=== PATIENT | male | born 1980 | race Caucasian/White ===

== ENCOUNTER 2018-06-08 06:55 | Observation (INO) ==
[~2018-06-08 06:55] MED LIST: LIDOCAINE W/ SODIUM BICARB 0.5 ML SYR ONE; LIDOCAINE W/ SODIUM BICARB 0.5 ML SYR SUBD ONE; Lactated Ringers 1,000 ML PRIMARY IV ONE; Nasal Sanitizer POPSWAB ampule 3 AMP (Nozin) PREOP DOSE ENOS SCH; SODIUM CHLORIDE 0.9% IV ONE; VANCOMYCIN IV ONE; ceFAZolin Inj 2gm (Premix) 2 GM/50 ML BAG IV ONE
[2018-06-08] MEDS ORDERED: fentaNYL Inj 250 MCG/5 ML VIAL ONE (07:21)
[2018-06-08] MEDS ORDERED: REMIFENTANIL HCL 5 MG VIAL IV ONE (07:21)
[2018-06-08] MEDS ORDERED: MIDAZOLAM 5 MG/1 ML ONE (07:21)
[2018-06-08] MEDS ORDERED: KETAMINE 100 MG/1 ML - 5 ML ONE (07:21)
--- NOTE | 2018-06-08 07:22 | DI ---
PA /LATERAL CHEST, 06/08/2018 7:40 AM : Clinical History: Cervical disc displacement. Spondylosis with radiculopathy. Preoperative evaluation . Previous Exam: None at this facility. There is no acute soft tissue or bony abnormality. Heart size is normal. Lungs are clear. Mediastinal structures are normal. There are no pulmonary nodules. Reading: Normal chest x-ray.
[2018-06-08] MEDS ORDERED: LIDOCAINE MPF 2% - 5 ML (20 MG/1 ML) ONE ×2 (07:34→11:39)
[2018-06-08] MEDS ORDERED: PROPOFOL 10 MG/1 ML (200 MG/20 ML) VIAL IV ONE ×2 (07:34→09:42)
[2018-06-08] MEDS ORDERED: Sodium Chloride 0.9% vial 10 ML ONE (07:36)
[2018-06-08] MEDS ORDERED: BACITRACIN 50,000 UNIT VIAL IRRIG ONE (07:36)
[2018-06-08] MEDS ORDERED: Vancomycin Inj 1gm vial ONE (07:36)
[2018-06-08 07:45] LABS: BASOPHILS # (AUTO) 0.03 10*3/UL; BASOPHILS % (AUTO) 0.5 % (0-1); BILIRUBIN,URINE NEGATIVE (NEG); CLARITY,URINE Slightly Cloudy (CLEAR); COLOR,URINE YELLOW (Y); EOSINOPHILS % (AUTO) 3.1 % (0-8); GLUCOSE, URINE (UA) NEGATIVE (NEG); Hematocrit [HCT] 44.9 % (42.0-52.0); Hemoglobin [HGB] 16.3 g/dL (14.0-18.0); LYMPHOCYTES # (AUTO) 2.53 10*3/uL; MEAN CORPUSCULAR HEMOGLOBIN 29.1 PG (27-31); MEAN CORPUSCULAR HGB CONC 36.3 g/dL (33-37); MONOCYTES # (AUTO) 0.47 10*3/UL (0.3-0.8); MONOCYTES % (AUTO) 7.3 % (5-15); NEUTROPHILS # (AUTO) 3.16 10*3/UL; NEUTROPHILS % (AUTO) 49.4 % (50-80); OCCULT BLOOD,URINE NEGATIVE (NEG); PH,URINE 5.5 (5.0-8.5); PROTEIN,URINE NEGATIVE (NEG); RED BLOOD COUNT 5.61 10^6/uL (4.70-6.10); URINE SAMPLE TYPE CLEAN CATCH URINE; UROBILINOGEN,URINE 0.2 EU/dL (0.2)
[2018-06-08 07:46] LABS: URINE SPECIFIC GRAVITY - MAN 1.025
[2018-06-08 07:47] LABS: PLATELET MORPHOLOGY COMMENT NORMAL MORPHOLOGY (NORM); RBC MORPHOLOGY COMMENT NORMAL MORPHOLOGY (NORM); WBC MORPHOLOGY COMMENT NORMAL MORPHOLOGY (NORM)
--- NOTE | 2018-06-08 07:52 | EKG ---
[address] [address] Measurements Intervals [place]e Rate: 72 P: 50 AR: 154 QRS: 7 QRSD: 90 T: 56 QT: 363 QTc: 387 Interpretive Statements SINUS RHYTHM NONSPECIFIC T-WAVE ABNORMALITY No previous ECG available for comparison Electronically Signed On 06-08-18 09:37:18 MDT by Venkat Jefferson MD [email or web address]
[2018-06-08] MEDS ORDERED: THROMBIN (BOVINE) 20,000 UNIT KIT TOPICAL ONE (07:57)
[2018-06-08] MEDS ORDERED: LIDOCAINE W/ SODIUM BICARB 0.5 ML SYR ONE (08:22)
[2018-06-08] MEDS ORDERED: Lactated Ringers 1,000 ML PRIMARY IV ONE (08:22)
[2018-06-08 08:53] LABS: BLOOD UREA NITROGEN 9 mg/dL (7-22); BUN/CREATININE RATIO 11.25 (6-20)
[2018-06-08] MEDS ORDERED: REMIFENTANIL 1 MG/1 ML IV ONE (10:33)
--- NOTE | 2018-06-08 11:39 | OPNOTE.NEU ---
Operative Note Operative Note: Neurosurgical Services Operative Note [facility] [place] Date of Surgery: 06-08-2018 Preoperative Diagnosis: Cervical disc herniation with radiculopathy Post-Op Diagnosis Codes: Same Procedure(s): C5-6, C6-7 Anterior cervical decompression and fusion 1. Anterior Cervical Decompression; 97206, 62980 2. Anterior Cervical Arthrodesis; 26459, 51929 3. Anterior Cervical Plating; 18814 4. Allograft Structural Graft; 90993 X2 5. Preparation of bone graft: A. Local autograft, same incision; B. [place] of morselized iliac crest autograft, separate incision; C. [place] of bone marrow aspirate, iliac crest; D. Addition of osteopromotive calcium compound; allograft DBM; 6. Intraoperative microsurgical technique 7. Intraoperative fluoroscopic navigation, [id number] 8. Intraoperative continuous neural monitoring, motor and sensory Surgeon(s): Timi Falk MD [place] Machine Operator(s): JITENDRA Suarez Anesthesia: General Anesthesiologist / MECHANICAL ENGINEERING TECHNICIAN: See database Brief Findings: Large central disc herniations at both levels. Procedure(s): We discussed the procedure, risks, advantages and disadvantages of surgical intervention at length. To prevent further pain, disability and potential progression of neurologic deficits, the patient would like to proceed with surgery. Introduction: After obtaining informed consent, careful consideration of the pre -operative studies and evaluation, the patient asked to proceed with surgery. The patient was taken to the operating room, given an anesthetic, positioned and prepared for surgery. All pressure points were meticulously padded and great care was taken to insure the patient was appropriately positioned to avoid any abnormal strain on the extremities or any other area. The operative region was prepared with iodine solution and isolated aseptically using routine sterile draping. Position / Approach: The patient was placed in the supine position such that an anterior approach could be taken to the neck. EXPOSURE: A right transverse neck incision at the abnormal level which was confirmed using fluoroscopy was made through skin, subcutaneous fat and the platysma muscle. Using sharp and blunt dissection, the anterior spine was exposed medial to the sternocleidomastoid muscle and carotid sheath and the longus coli muscles were carefully reflected off the vertebrae using electrocautery and a deep self-retaining retractor was place beneath them. Thereafter, distraction pins were place within the vertebral bodies above and below the abnormal levels. The inner space was then distracted to improve exposure during the decompression. DECOMPRESSION: While distracting the interspaces, a radical discectomy was performed. After removal of the disk using curettes considerable posterior osteophytosis was encountered as well as central disc herniation at both levels. The osteophytes were removed using a high speed drill equipped with a christiano bur, microsurgical technique and the intraoperative microscope for visualization. There was clear evidence of compression upon the exiting nerve root and spinal cord at both levels. The posterior longitudinal ligament was taken down and wide foraminotomies were fashioned on both sides at both levels. The epidural space was explored extensively confirming no further compression upon the neural elements. ARTHRODESIS: After the decompression, the height of the inner space was measured and an allograft bone graft was selected which would fit snuggly within the space. The graft was loaded with bone graft which was prepared as described. The graft was placed using the fluoroscope to assess the graft position so that it could be countersunk appropriately. Allograft structural grafts were placed at both levels. HARVEST / PREPARATION of BONE GRAFT: The "bone graft" was prepared from the patient's own bone derived from the left hip collected by curetting bone from the hip through a separate slab incision(). This morselized bone was admixed with bone marrow aspirate also obtained from the hip (). Autologous local bone which was removed during the decompression through the same incision used for the fusion was stripped of surrounding soft tissues, morselized () and mixed with osteopromotive calcium compound as well as allograft demineralized bone matrix (), and this was combined with the previously described hip graft and concentrated bone marrow aspirate to form the "bone graft." ANTERIOR PLATE INSTRUMENTATION: Having completed the decompression and placement of the interbody spacers, a cervical plate was selected which spanned the levels and also could be contoured to the anterior aspect of the patient's cervical spine. Osteophytes along the anterior spine were removed to allow the plate to conform to the spine appropriately. The plate was then secured to the spine using 14 mm screws, all of which were locked into position using the locking mechanism of the plate. Additional bone graft material was placed around the plate and around the implanted spacer within the inner space. NEED FOR FISH FLIPPER: Fernando Torrez PA-C, was instrumental throughout the operation to assist with exposure of the neural structures and protect them as the bony elements were removed. He was also instrumental during placement of the implant(s) which often takes more than two hands to perform safely and efficiently. OTHER TOOLS USED / UTILITY: All manipulation of the neural elements was performed using the microscope for visualization. As well, the fluoroscope was used to confirm the levels as indicated as well as to assist during implant placement and later to assess the patient's spinal alignment. There were no intra operative complications. Motor and sensory monitoring was performed throughout the procedure by a certified monitoring hvac maintenance technician in the room in communication with a remote monitoring physician and no abnormal neurological findings were encountered. CLOSURE: The wound was irrigated with copious amounts of antibiotic impregnated saline solution and immaculate hemostasis was achieved using thrombin soaked Gelfoam, bone wax along the bony margins, as well as electrocautery. Surgicel was used to cover the implanted graft and plate. A drain was placed in the pre-vertebral space and tunneled to an exit site lateral to the formed incision. The wound was then closed in anatomical layers using Vicryl suture in the subcutaneous tissue layers followed by Steri-Strips on the skin. Estimated Blood Loss: Minimal Operative hemorrhage? Yes, expected amount. Drains: Hemovac Condition: Good Complications: None Authenticated by Dr. Falk On Production
[2018-06-08] MEDS ORDERED: HYDROmorphone 2 MG/1 ML ONE (11:40)
[2018-06-08] MEDS ORDERED: BUTORPHANOL TARTRATE 2 MG/1 ML VIAL ONE (12:13)
[2018-06-08] MEDS ORDERED: HYDROmorphone 2 MG/1 ML IVP PRN (12:30)
[2018-06-08] MEDS ORDERED: LIDOCAINE W/ SODIUM BICARB 0.5 ML SYR SUBD PRN (12:30)
[2018-06-08] MEDS ORDERED: ONDANSETRON 4 MG/2 ML VIAL IVP PRN ×2 (12:30→14:23)
--- NOTE | 2018-06-08 12:30 | CRNA.PROGR ---
Anesthesia Time - Procedure/Recovery Time Start Date: 06/08/18 End Date: 06/08/18 Anesthesia : Time In: 08:51 Anesthesia : Time Out: 12:26 Anesthesia : Total Time: 215 - Total Anesthesia Time Total Anesthesia Time (minutes): 215 - Other Weight: 114.305 kg Height: 6 ft 1 in Body Mass Index (BMI): 33.2 Physical Status: P1 Anesthesia Type: General Anesthesia : ET
--- NOTE | 2018-06-08 12:30 | CRNA.PROGR ---
Anesthesia Recovery Phase I - Post Anesthesia Evaluation Patient's Condition on Arrival in Phase I: Fair Pain Level: 0 (intubated, spont resp, on t-piece, VSS)
[2018-06-08] MEDS ORDERED: LABETALOL 20 MG/4 ML (5 MG/1 ML) SYRINGE IVP PRN (14:23)
[2018-06-08] MEDS ORDERED: CYCLOBENZAPRINE 10 MG TABLET PO PRN (14:23)
[2018-06-08] MEDS ORDERED: ACETAMINOPHEN 325 MG TABLET PO PRN (14:23)
[2018-06-08] MEDS ORDERED: Ondansetron ODT Tab 4 MG TAB PO PRN (14:23)
[2018-06-08] MEDS ORDERED: Zolpidem Tab 5 MG TAB PO PRN (14:23)
[2018-06-08] MEDS ORDERED: DOCUSATE 100 MG CAPSULE PO PRN (14:23)
[2018-06-08] MEDS ORDERED: HYDRALAZINE 20 MG/1 ML IVP PRN (14:23)
[2018-06-08] MEDS ORDERED: MORPHINE SULFATE 2 MG/1 ML IVP PRN (14:23)
[2018-06-08] MEDS ORDERED: HYDROcodone-APAP 5 MG -325 MG TABLET PO PRN (14:23)
[2018-06-08] MEDS: D5-1/2NS + 20mEq KCL 1,000 ML PRIMARY IV SCH (15:18)
[2018-06-08] MEDS: CYCLOBENZAPRINE 10 MG TABLET PO PRN (15:19)
[2018-06-08] MEDS: ceFAZolin Inj 1 GM in Sodium Chloride 0.9% 100 ML IV SCH (17:02)
[2018-06-08] MEDS: DIAZEPAM 10 MG/2 ML (5 MG/1 ML) CARPUJECT IVP PRN ×2 (17:10→20:50)
--- NOTE | 2018-06-08 20:42 | DI ---
CERVICAL SPINE SERIES, 06/08/2018 12:32 PM: Clinical History: Cervical disc displacement, Spondylosis Previous Exam: None at this facility. Comparison is made with a crosstable lateral view from a cervic al myelogram dated 02/03/2018. AP and lateral views are submitted. The patient is status post anterior fusions at C5-6 and C6-7. The bone grafts are transfixed with an anterior buttress plate spanning between C5 and C7 and the grafts are in the appropriate position. There is prevertebral soft tissue swelling at the surgical site. A drain tube is present. Reading: Status post anterior fusions at C5-6 and C6-7.
[2018-06-09] MEDS: ceFAZolin Inj 1 GM in Sodium Chloride 0.9% 100 ML IV SCH (00:41)
[2018-06-09] MEDS: DIAZEPAM 10 MG/2 ML (5 MG/1 ML) CARPUJECT IVP PRN (00:41)
[2018-06-09] MEDS: D5-1/2NS + 20mEq KCL 1,000 ML PRIMARY IV SCH (02:40)
[2018-06-09] MEDS: CYCLOBENZAPRINE 10 MG TABLET PO PRN (05:03)
--- NOTE | 2018-06-09 07:42 | NEURO.PROG ---
Subjective Post Op Day: 1 Pain Management: PO Greene Catheter: No Flatus: Yes Diet: Regular (Swallowing fine.) Additional Details: Drain output serous. 30 cc at 0500. 0 cc over 3 hours. Remove and discharge. Objective : Data - Labs CBC and BMP: 06/08/18 07:35 06/08/18 07:35 - Vital Signs Vital Signs and I&O: Vital Signs - Last Taken Temperature 98.1 F 06/09/18 05:18 Pulse Rate 84 06/09/18 06:54 Respiratory Rate 16 06/09/18 06:54 Blood Pressure 118/78 06/09/18 05:18 Pulse Ox 94 06/09/18 06:54 Intake and Output (24hr x 4 totals) 06/07/18 06/08/18 06/09/18 06/10/18 05:59 05:59 05:59 05:59 Intake Total 5870 / 5870 Output Total 2940 / 2940 Balance 2930 / 2930
[2018-06-09 07:43] VITALS: BP 133/82; RESP 18; TEMP 97.3; O2SAT 96
--- NOTE | 2018-06-09 08:35 | PT.PROG ---
Progress Note Progress Note: S. Patient states that he is feeling great and feels that he is ready to go home. O. Patient ambulated 100 feet to the stair well and ascended and descended 12 stairs then ambulated 100 feet back to his room where he was left in bed. A. patient has met all goals at this time. P. Patient is cleared from therapy.
--- NOTE | 2018-06-09 16:20 | PTI REPORT ---
Thank you for the referral of Ray Wyatt. He was seen on 06/08/18 for an inpatient evaluation status post cervical fusion. SUBJECTIVE: The patient is a 38-year-old male who presents status post neck fusion. The patient is originally from [place], [place] where he lives with his spouse. He states that prior to his surgery he was independent with all ADLs and iADLs and did not use any type of assistive device. The patient states he does have 10- 12 stairs to get into his home. PAST MEDICAL HISTORY: Past medical history can be found in the patient's medical record. OBJECTIVE FINDINGS: General observations: The patient was very groggy upon PT arrival. He was oriented to setting. When asked questions, the patient responded appropriately but states that he is very tired and had difficulties keeping his eyes open during the evaluation. The patient does have a Hemovac drain in place along with an IV. The patient is also on one liter of oxygen. Pain: The patient reports a pain level currently of 8/10 on the verbal analog scale (0=no pain, 10=worst pain), mainly due to the fact that he feels like he doesn't have the stability to hold his head up. The patient is also dealing with some after effects of anesthesia. Bed mobility: The patient was able to independently move from supine to seated edge of bed. When sitting upright edge of bed, the patient denied any lightheadedness or dizziness. He did state that his head felt very heavy. The patient was able to independently transfer from sitting edge of bed to supine. Transfers: The patient was able to move from a seated to standing position once his socks and gait belt were placed on. Once standing, the patient reported a little dizziness initially but that subsided. He demonstrated fair initial standing balance and good standing balance once he was completely upright. Ambulation: After standing upright for one minute, the patient reported he would like to ambulate to the bathroom in the room. The patient ambulated with contact guard assist x1 for safety approximately 15 feet. The patient then stood for 2-3 minutes. He then started to feel dizzy and his color had gone pale. The patient ambulated x15 feet back to the bed. After laying in bed with head of bed elevated slightly, the patient's color did return and he stated that he felt better. ASSESSMENT: The patient has good rehab potential. Problem List: Increased neck pain Decreased ability to perform functional abilities such as walking up stairs Physical Therapy Goals: To be met by discharge from inpatient: Patient will be instructed in and verbalize understanding of post cervical fusion precautions. Patient will be able to ambulate at least 150 feet safely and independently without use of assistive device. Patient will be able to ascend and descend one flight of stairs safely and independently. TREATMENT PLAN: Patient will be seen one time tomorrow to address our goals. If goals are met, the patient will most likely be discharged at that time. INITIAL TREATMENT: Treatment today consisted of the initial evaluation along with review of cervical precautions including moving his neck but to avoid end ranges along with lifting precautions. Following treatment the patient was left in bed with call light within reach and bed alarm set. [facility]
--- NOTE | 2018-06-12 14:32 | OTI REPORT ---
Thank you for the referral of CHAGO EASTON. He was seen on 06/08/18 for an occupational therapy inpatient evaluation status post cervical fusion. SUBJECTIVE: Patient currently reports 7/10 pain. He has just been moved to the 3rd floor following surgery approximately 2 hours ago. He does report that he is having some neck pain which he rates as a 7/10 with neck weakness and he is feeling very tired. Patient and his report that at prior level of function he was independent in all ADL tasks. 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 At prior level function he had bilateral numbness and pain in both arms upon raising them above 90 degrees into flexion/abduction. At this time the patient is not experiencing any pain or numbness in bilateral arms. He is having some pain in the neck, upper trap area, and the shoulder scapula region. Patient's home set up includes approximately 13 steps in all. Patient does have past medical history of surgery including a L5-S1 lumbar fusion. He has had 3 surgeries related to that because the first 2 failed. PAST MEDICAL HISTORY: Past medical history can be found in the patient's medical record. OBJECTIVE FINDINGS: Patient demonstrated the ability to complete upper extremity range of motion that was within functional limits. Strength was not assessed secondary to post surgical precautions at this time. Patient demonstrated the ability to move from sitting upright in bed to edge of bed independently. He completed sit to stand transfer with contact guard assist and then ambulated to the bathroom with contact guard assist. Patient tolerated standing x5 minutes and then returned to bed. Patient was experiencing some fatigue and tiredness and some confusion secondary to anesthesia. ASSESSMENT: Rehab potential is good. Problem List: Decreased ability to complete functional transfers Decreased ability to complete upper and lower extremity dressing Short-Term Goals: To be met by discharge from inpatient: Patient will be able to complete lower extremity dressing tasks independently. Patient will be able to complete upper extremity dressing tasks independently. Patient will be able to complete bed mobility tasks independently. Patient will be able to complete toilet transfer and toileting task independently prior to discharge to home. Long-Term Goals: To be met following discharge from inpatient: Patient may be seen by outpatient physical therapy in [place] related to orthopedic surgery. TREATMENT PLAN: Patient will be seen B.I.D during the week and one time per day over the weekend as an inpatient to address the above goals and objectives. INITIAL TREATMENT: Treatment today consisted of initial evaluation only. Patient will be assessed tomorrow by occupational therapy staff regarding a need for adaptive equipment for dressing. [facility]
== END 2018-06-09 08:45 | disposition home or self-care (01) ==
LOC: OR 06:55 → MED/SURG 06:55
PROVIDERS: ADMIT Neurological Surgery; ATTEND Neurological Surgery